=== PATIENT | female | born 1975 ===

== ENCOUNTER 2018-06-05 14:52 | Emergency (ER) | payer MEDICAID ==
[2018-06-05] MEDS ORDERED: Sodium Chloride 0.9% 1,000 ML IV ONE (15:52)
[2018-06-05 16:44] LABS: BASO % 0.6 % (0.0-2.0); EOS % 0.1 % (0.0-4.0); HEMOGLOBIN 15.6 g/dL (12.0-16.0); LYMPH # 1.4 K/uL (1.0-4.3); LYMPH % 16.6 % (20.0-40.0); MEAN CELL VOLUME 85.7 fl (81.0-99.0); MEAN CORPUSCULAR HEMOGLOBIN 29.5 pg (27.0-31.0); MEAN CORPUSCULAR HGB CONC 34.4 g/dL (33.0-37.0); MEAN PLATELET VOLUME 8.5 fl (7.2-11.7); MONO # 0.3 K/uL (0.0-0.8); MONO % 3.8 % (0.0-10.0); NEUT # 6.8 K/uL (1.8-7.0); NEUT % 78.9 % (50.0-75.0); NRBC % 0.1 % (0.0-0.0); RBC 5.28 Mil/uL (3.80-5.20); WHITE BLOOD COUNT 8.7 K/uL (4.8-10.8)
--- NOTE | 2018-06-05 16:59 | ED PDOC ---
HPI: Headache Time Seen by Provider: 06/05/18 15:39 Chief Complaint (Nursing): Headache Chief Complaint (Provider): headache History Per: Patient History/Exam Limitations: no limitations Onset/Duration Of Symptoms: Days Current Symptoms Are (Timing): Still Present Associated Symptoms: Photophobia, Nausea, Vomiting. denies: Extremity Weakness Additional Complaint(s): 42 year old female presents to the ED for global headache which she rates 10/10 associated with dizziness, onset for last 3 days. Patient reports of 4 episodes of non-bloody and non-bilious vomiting today prompting her to visit the ED. She took Tylenol and Motrin without relief since onset, however she did not take any medicines today. Patient also notes photophobia and nausea. She also has a history of migraines but patient states this headache is not similar to her previous symptoms. She denies fever, chills, neck pain or stiffness, cough, change in visions, weakness, numbness, abdominal pain, recent travel or sick contacts. Patient also reports she is not compliant with her DM medications. LNMP: 05/30/18. PMD: Located in [place] Past Medical History Reviewed: Historical Data, Nursing Documentation, Vital Signs Vital Signs: Last Vital Signs Temp 99.5 F 06/05/18 15:15 Pulse 83 06/05/18 15:15 Resp 16 06/05/18 15:15 BP 131/70 06/05/18 15:15 Pulse Ox 100 06/05/18 15:15 - Medical History PMH: Diabetes (type 2 but not compliant with diabetes medicine ), HTN - Surgical History Other surgeries: right ankle procedure after fracture - Family History Family History: States: Unknown Family Hx - Social History Current smoker - smoking cessation education provided: Yes (1 pack a day ) Alcohol: Social Drugs: Denies - Home Medications Home Medications: Ambulatory Orders Medication Instructions Recorded Acetaminophen/Butalbital/Caf 1 tab PO Q6 PRN #12 tab 06/05/18 [Fioricet] Ibuprofen [Motrin Tab] 600 mg PO Q6 PRN #28 tab 06/05/18 - Allergies Allergies/Adverse Reactions: Allergies Allergy/AdvReac Type Severity Reaction Status Date / Time morphine Allergy RASH Verified 06/05/18 15:14 Review of Systems ROS Statement: Except As Marked, All Systems Reviewed And Found Negative Constitutional: Negative for: Fever, Chills Eyes: Negative for: Vision Change Respiratory: Negative for: Cough Gastrointestinal: Positive for: Nausea, Vomiting. Negative for: Abdominal Pain Musculoskeletal: Negative for: Neck Pain Neurological: Positive for: Headache, Dizziness. Negative for: Weakness, Numbness Physical Exam - Reviewed Nursing Documentation Reviewed: Yes Vital Signs Reviewed: Yes - Physical Exam Comments: GENERALIZED APPEARANCE:Patient is awake, alert, oriented x3; uncomfortable appearing but in no acute distress. SKIN: Warm, dry; (-) cyanosis. HEAD: (-) scalp swelling or tenderness. EYES: (-) conjunctival pallor. (+) photophobia ENMT: Mucous membranes dry. Airway patent, (-) stridor. NECK: Supple, FROM (-) tenderness, (-) stiffness, (-) lymphadenopathy. CHEST AND RESPIRATORY: (-) rales, (-) rhonchi, (-) wheezes; breath sounds equal bilaterally. Respirations even and nonlabored. HEART AND CARDIOVASCULAR: (-) irregularity ABDOMEN AND GI: Soft; (-) distention, (-) tenderness, (-) rebound, (-) guarding , (-) palpable masses, (-) flank tenderness. EXTREMITIES: (-) deformity NEURO AND PSYCH: GCS=15. Mental status as above. mercerizer: Pupils equal & reactive . EOMI and painless. (-) facial asymmetry. Tongue and uvula midline. Strength 5/5 in all extremities. No gross sensory deficits. Gait: steady. Speech: clear. - Laboratory Results Result Diagrams: 06/05/18 16:15 06/05/18 16:15 Urine POC: Negative Urine dip results: Positive for: Ketones (15). Negative for: Leukocyte Esterase , Blood, Nitrate, Glucose, Bilirubin, Protein - ECG O2 Sat by Pulse Oximetry: 100 (RA) Pulse Ox Interpretation: Normal Medical Decision Making Medical Decision Making: Time: 1550 Initial Impression: headache,dizziness, and vomiting Initial Plan: --Head w/o Contrast CT --CMP --ED Urine --ED Urine Dipstick --CBC w/ Differential --Glucose, Blood, POC --Antivert 25mg --Fioricet --Normal Saline 1000 mls/hr --Reglan 10mg --Toradol 30mg --Tylenol 650mg --Zofran 4mg --Diagnostic Sales Specialist --IV Insertion --Reevaluation Accucheck: 121 1730 CBC and CMP grossly unremarkable. Date of service: 06/05/2018 PROCEDURE: CT HEAD WITHOUT CONTRAST. HISTORY: dizziness, headache COMPARISON: None available. TECHNIQUE: Axial computed tomography images were obtained through the head/brain without intravenous contrast. Radiation dose: Total exam DLP = 792.58 mGy-cm. This CT exam was performed using one or more of the following dose reduction techniques: Automated exposure control, adjustment of the mA and/or kV according to patient size, and/or use of iterative reconstruction technique. FINDINGS: HEMORRHAGE: No intracranial hemorrhage. BRAIN: No mass effect or edema. The britton-white matter differentiation appears intact. Please note that MRI with diffusion imaging is more sensitive in the detection of acute ischemic event. VENTRICLES: No hydrocephalus. CALVARIUM: Unremarkable. PARANASAL SINUSES: Mucosal polyp/ retention cyst within the left maxillary sinus. The paranasal sinuses appear otherwise clear. MASTOID AIR CELLS: Unremarkable as visualized. No inflammatory changes. OTHER FINDINGS: None. IMPRESSION: No acute intracranial pathology identified. Toradol 30mg IVP ordered. 1854 Patient reports persistent headache. Reglan 10mg IVP ordered. Pending Udip. 2024 Udip reviewed and grossly unremarkable. On re-evaluation, patient reports improvement of symptoms. On exam, patient remains AAOx3, in no acute distress. Lungs clear to auscultation, cardiac RRR, abdomen soft, non-tender, repeat neuro exam shows no focal findings. Vitals stable. Tolerating PO intake. Lab/Diagnostic results d/w the patient in great detail. Diagnosis of headache, dizziness, nausea and vomiting d/w the patient. Based on history, exam and diagnostic results, plan will be for outpatient follow up with PMD/Neuro. Patient instructed to follow-up with pmd / referral provided / the clinic in 1- 2 days without fail. Advised to take medication as prescribed. Return to the emergency room at any time for any new or worsening symptoms. Patient states she fully agrees with and understands discharge instructions. States that she agrees with the plan and disposition. Verbalized and repeated discharge instructions and plan. I have given the patient opportunity to ask any additional questions. Scribe Attestation: Documented by Bela Tineo, acting as a scribe for Toya Anaya PA-C. Provider Scribe Attestation: All medical record entries made by the Scribe were at my direction and personally dictated by me. I have reviewed the chart and agree that the record accurately reflects my personal performance of the history, physical exam, medical decision making, and the department course for this patient. I have also personally directed, reviewed, and agree with the discharge instructions and disposition. Disposition - Clinical Impression Clinical Impression: Headache, Nausea and vomiting, Dizziness - Patient ED Disposition Is Patient to be Admitted: No Counseled Patient/Family Regarding: Studies Performed, Diagnosis, Need For Followup, Rx Given - Disposition Referrals: Jamil Meraz MD [Medical Doctor] - [facility] [Outside] Disposition: Routine/Home Disposition Time: 20:30 Condition: STABLE Additional Instructions: The emergency medical care you received today was directed at your acute symptoms. If you were prescribed any medication, please fill it and take as directed. It may take several days for your symptoms to resolve. Return to the Emergency Department if your symptoms worsen, do not improve, or if you have any other problems. Please contact your doctor in 2 days for re-evaluation and follow up / or call one of the physicians/clinics you have been referred to that are listed on the Patient Visit Information form that is included in your discharge packet. Bring any paperwork you were given at discharge with you along with any medications you are taking to your follow up visit. Our treatment cannot replace ongoing medical care by a primary care provider (PCP) outside of the emergency department. Prescriptions: Acetaminophen/Butalbital/Caf [Fioricet] 1 tab PO Q6 PRN #12 tab PRN Reason: Headache Ibuprofen [Motrin Tab] 600 mg PO Q6 PRN #28 tab PRN Reason: Headache Instructions: Headache, Adult, Nausea and Vomiting, Adult (DC), Migraine Headaches in Adults Forms: Informative (Kinyarwanda) Print Language: NAMIBIAN - POA Present On Arrival: None Results - Lab Results Lab Results: 06/05/18 06/05/18 06/05/18 16:47 16:15 16:15 WBC 8.7 RBC 5.28 H Hgb 15.6 Hct 45.3 MCV 85.7 MCH 29.5 MCHC 34.4 RDW 13.0 Plt Count 278 MPV 8.5 Neut % (Auto) 78.9 H Lymph % (Auto) 16.6 L Hamilton % (Auto) 3.8 Eos % (Auto) 0.1 Baso % (Auto) 0.6 Neut # (Auto) 6.8 Lymph # (Auto) 1.4 Hamilton # (Auto) 0.3 Eos # (Auto) 0.0 Baso # (Auto) 0.0 Sodium 139 Potassium 4.3 Chloride 107 Carbon Dioxide 26 Anion Gap 10 BUN 9 Creatinine 0.8 Est GFR ( Amer) > 60 Est GFR (Non-Af Amer) > 60 POC Glucose (mg/dL) 121 H Random Glucose 172 H Calcium 10.1 Total Bilirubin 1.7 H AST 21 ALT 36 Alkaline Phosphatase 68 Total Protein 8.1 Albumin 4.5 Globulin 3.7 Albumin/Globulin Ratio 1.2
[2018-06-05 17:12] LABS: ALB/GLOB RATIO 1.2 (1.0-2.1); ALBUMIN 4.5 g/dL (3.5-5.0); ALT/SGPT 36 U/L (9-52); AST/SGOT 21 U/L (14-36); BLOOD UREA NITROGEN 9 mg/dl (7-17); CALCIUM 10.1 mg/dL (8.4-10.2); GFR NON-AFRICAN AMERICAN > 60
--- NOTE | 2018-06-05 17:28 | CT ---
Date of service: 06/05/2018 PROCEDURE: CT HEAD WITHOUT CONTRAST. HISTORY: dizziness, headache COMPARISON: None available. TECHNIQUE: Axial computed tomography images were obtained through the head/brain without intravenous contrast. Radiation dose: Total exam DLP = 792.58 mGy-cm. This CT exam was performed using one or more of the following dose reduction techniques: Automated exposure control, adjustment of the mA and/or kV according to patient size, and/or use of iterative reconstruction technique. FINDINGS: HEMORRHAGE: No intracranial hemorrhage. BRAIN: No mass effect or edema. The britton-white matter differentiation appears intact. Please note that MRI with diffusion imaging is more sensitive in the detection of acute ischemic event. VENTRICLES: No hydrocephalus. CALVARIUM: Unremarkable. PARANASAL SINUSES: Mucosal polyp/ retention cyst within the left maxillary sinus. The paranasal sinuses appear otherwise clear. MASTOID AIR CELLS: Unremarkable as visualized. No inflammatory changes. OTHER FINDINGS: None. IMPRESSION: No acute intracranial pathology identified.
[2018-06-05] MEDS ORDERED: Apap-Butalbital-Caffeine 325-50-40mg Tab PO STA (18:55)
[2018-06-05 22:08] VITALS: BP 129/81; PULSE 85; RESP 16; TEMP 98.3
[2018-06-07 00:32] VITALS: O2SAT 100
== END 2018-06-05 20:42 | disposition home or self-care (01) ==
LOC: H.ER 14:52
DX: R51 Headache (principal); R11.2 Nausea with vomiting, unspecified; R42 Dizziness and giddiness; E11.9 Type 2 diabetes mellitus without complications
CPT/HCPCS: 70450; 80053; 81025; 82948; 85025; 96361; 96374; 96375; 99285; J1885; J2405; J2765; J7040